=== PATIENT | male | born 1965 | race Caucasian/White ===

== ENCOUNTER 2023-07-06 13:56 | Outpatient (CLI) | payer BC ==
[2023-07-06 15:18] LABS: Hematocrit 43.7 % (38.8-50.0); Hemoglobin 14.7 g/dL (13.5-17.5); Mean Corpuscular HGB CONC 33.6 g/dL (32.0-36.0); Mean Corpuscular Volume 92.2 fl (81.2-95.1); Mean Platelet Volume 9.3 fl (7.4-10.4); Platelet Count 357 10x3/uL (150-450); RBC Distribution Width 11.4 % (11.5-14.5); Red Blood Cell (RBC) Count 4.74 10x6/uL (4.32-5.72); White Blood Cell (WBC) Count 3.7 10x3/uL (3.5-10.5)
[2023-07-06 15:35] LABS: Anion Gap 12 mmol/L (10-20); BUN (Urea Nitrogen) 11 mg/dL (8.4-25.7); Calc. Creatinine Clearance 0 mL/min (70-130); Calcium 9.5 mg/dL (7.8-10.44); Carbon Dioxide 28 mmol/L (22-29); Chloride 103 mmol/L (98-107); Estimated GFR 79; Glucose 96 mg/dL (70-105); Potassium 4.4 mmol/L (3.5-5.1); Sodium 139 mmol/L (136-145)
== END 2023-07-06 13:57 | disposition home or self-care (01) ==
LOC: LABBT 13:56
PROVIDERS: ATTEND Neurological Surgery
DX: Z01.818 Encounter for other preprocedural examination (principal); M50.122 Cervical disc disorder at C5-C6 level with radiculopathy; M50.123 Cervical disc disorder at C6-C7 level with radiculopathy
CPT/HCPCS: 80048; 85027; 85610; 85730; 93005; 93010

== ENCOUNTER 2023-07-11 05:38 | Day surgery (SDC) | payer BC ==
[2023-07-06 14:31] VITALS: BMI 27.6
[2023-07-11] MEDS ORDERED: Fentanyl 250 MCG/5 ML VIAL ONE (06:22)
[2023-07-11] MEDS ORDERED: PROPOFOL 20 ML ONE (06:22)
[2023-07-11] MEDS ORDERED: Lidocaine 1% PF 5 ML VIAL ONE (06:23)
[2023-07-11] MEDS ORDERED: Rocuronium Bromide 10 MG/ML (10ML VIAL) ONE (06:23)
[2023-07-11] MEDS ORDERED: Famotidine/PF 20 mg/2ml Vial ONE (06:30)
[2023-07-11] MEDS ORDERED: Scopolamine 1 mg/72 hour Patch ONE (06:30)
[2023-07-11] MEDS ORDERED: Vancomycin 1 GM VIAL ONE ×2 (06:43→08:02)
[2023-07-11] MEDS ORDERED: Thrombin 5000 UNITS/5 ML VIAL ONE (06:43)
[2023-07-11] MEDS ORDERED: Promethazine HCl 25 MG/ML VIAL ONE (06:52)
[2023-07-11] MEDS ORDERED: CEFAZOLIN 2 GM VIAL ONE (06:52)
[2023-07-11] MEDS ORDERED: Sodium Chloride 0.9% 100 ML ONE (06:52)
[2023-07-11] MEDS ORDERED: Dexamethasone 20 MG/5 ML VIAL ONE (07:25)
[2023-07-11] MEDS ORDERED: ePHEDrine Sulfate 50 MG/10 ML VIAL ONE (07:58)
[2023-07-11] MEDS ORDERED: PHENYLEPHRINE-NS 100 MCG/ML 10 ML SYRINGE ONE (08:40)
[2023-07-11] MEDS ORDERED: Vecuronium 10 MG VIAL ONE (09:01)
[2023-07-11] MEDS ORDERED: SUGAMMADEX SODIUM 200 MG/2 ML VIAL ONE (09:53)
[2023-07-11] MEDS ORDERED: Ondansetron PF 4 MG/2 ML Vial ONE (10:04)
[2023-07-11] MEDS ORDERED: Lidocaine 2% PF 5 ML VIAL ONE (10:06)
[2023-07-11] MEDS ORDERED: fentaNYL 50 mcg/mL 1 mL Vial ONE (10:53)
[2023-07-11] MEDS ORDERED: Tamsulosin HCl 0.4 MG CAP ONE (10:55)
[2023-07-11] MEDS ORDERED: HYDROcodone/Acetaminophen 7.5/325 mg Tablet ONE (12:46)
[2023-07-11] MEDS ORDERED: traMADol HCl 50 MG TAB ONE (12:54)
== END 2023-07-11 13:53 | disposition home or self-care (01) ==
LOC: SDC 05:38
PROVIDERS: ATTEND Neurological Surgery
PROC: 0RG20A0 Fusion of 2 or more Cervical Vertebral Joints with Interbody Fusion Device, Anterior Approach, Anterior Column, Open Approach (ICD-10-PCS; principal; 2023-07-11)
PROC: 0RG2070 Fusion of 2 or more Cervical Vertebral Joints with Autologous Tissue Substitute, Anterior Approach, Anterior Column, Open Approach (ICD-10-PCS; principal; 2023-07-11)
DX: M50.122 Cervical disc disorder at C5-C6 level with radiculopathy (principal); M50.123 Cervical disc disorder at C6-C7 level with radiculopathy; M48.02 Spinal stenosis, cervical region; Z88.5 Allergy status to narcotic agent; Z90.49 Acquired absence of other specified parts of digestive tract
CPT/HCPCS: C1713; J1100; J2001; J2405; J2550; J2704; J3010; J3370; J3490; S0028

== ENCOUNTER 2024-12-20 15:05 | Outpatient (CLI) | payer BC | END 2024-12-20 15:06 | disposition home or self-care (01) | LOC: BICRAD 15:05 | PROVIDERS: ATTEND Family Medicine | DX: K59.00 Constipation, unspecified (principal) | CPT/HCPCS: 74018 ==

== ENCOUNTER 2025-01-03 10:08 | Outpatient (CLI) | payer BC ==
[2025-01-03 10:42] LABS: Estimated GFR - POC 77.0
== END 2025-01-03 10:09 | disposition home or self-care (01) ==
LOC: SCSMRI 10:08
PROVIDERS: ATTEND Urology
DX: R97.20 Elevated prostate specific antigen [PSA] (principal)
CPT/HCPCS: 36415; 72197; 82565

== ENCOUNTER 2025-01-13 13:53 | Outpatient (CLI) | payer BC ==
[2025-01-13 14:34] LABS: Estimated GFR - POC 86.0
== END 2025-01-13 13:54 | disposition home or self-care (01) ==
LOC: CT 13:53
PROVIDERS: ATTEND Family Medicine
DX: R10.31 Right lower quadrant pain (principal)
CPT/HCPCS: 36415; 74160; 82565